=== PATIENT | female | born 1975 | race Caucasian/White ===

== ENCOUNTER → 2023-03-25 08:54 | Outpatient (BNVA) | payer SELFPAY | PROVIDERS: Referring Provider Dermatology; Visit Provider Dermatology | DX: Z01.89 Encounter for other specified special examinations (principal) ==

== ENCOUNTER → 2024-01-20 14:11 | Outpatient (BNVA) | payer MEDICAID, SELFPAY | PROVIDERS: PCP Nurse Practitioner; Visit Provider Nurse Practitioner | DX: I10 Essential (primary) hypertension (principal); F41.1 Generalized anxiety disorder | CPT/HCPCS: 80053; 80061; 84439; 84443; 84481 ==

== ENCOUNTER → 2025-01-25 12:01 | Outpatient (BNVA) | payer MEDICAID, SELFPAY | PROVIDERS: PCP Nurse Practitioner; Visit Provider Nurse Practitioner | DX: I10 Essential (primary) hypertension (principal) | CPT/HCPCS: 80053; 80061 ==

== ENCOUNTER → 2025-07-20 15:30 | Outpatient (BNVA) | payer MEDICAID, SELFPAY | PROVIDERS: PCP Nurse Practitioner; Visit Provider Nurse Practitioner | DX: I10 Essential (primary) hypertension (principal); W57.XXXA Bitten or stung by nonvenomous insect and other nonvenomous arthropods, initial encounter | CPT/HCPCS: 80053; 86618; 86666; 86757 ==

== ENCOUNTER 2025-08-16 09:53 | Outpatient (CLI) | payer MEDICAID, SELFPAY ==
--- NOTE | 2025-08-16 09:58 | MM_ITS ---
WS: [id number] BILATERAL 3D TOMOSYNTHESIS DIGITAL SCREENING MAMMOGRAPHY WITH CAD CLINICAL INFORMATION: Z12.31 - Encounter for screening mammogram for malignant ... HISTORY: Screening mammogram. No current complaints. COMPARISON: 2012 TECHNIQUE: Bilateral CC and MLO views. FINDINGS: Scattered fibroglandular densities bilaterally. No suspicious focal mass, asymmetry, calcifications, or architectural distortion. No evidence of malignancy. MM/MM scr tomosynthesis [id number] IMPRESSION: DENSITY: There are scattered areas of fibroglandular density. BI-RADS: 1 - Negative. FOLLOW UP: 1 Year Follow-up Recommend return to annual screening mammography.
== END 2025-08-16 09:54 | disposition home or self-care (01) ==
LOC: RAD 09:54
PROVIDERS: PCP Nurse Practitioner; Visit Provider Nurse Practitioner
DX: Z12.31 Encounter for screening mammogram for malignant neoplasm of breast (principal); R92.323 Mammographic fibroglandular density, bilateral breasts
CPT/HCPCS: 77063; 77067

== ENCOUNTER 2025-09-13 09:17 | Outpatient (CLI) | payer MEDICAID, SELFPAY ==
--- NOTE | 2025-09-13 10:00 | FL_ITS ---
WS: [id number] Exam: FL barium swallow modifd [id number] Date/Time of Exam: 09/13/2025 10:11 AM Reason For Exam: Fluoroscopy time: 2min [id number] minutes # of spot films: Modified barium swallow test was performed in conjunction with the speech therapy service. Oral pharyngeal phase of swallowing was normal. There was mild extrinsic compression along the posterior cervical esophagus secondary to bone spurring from C4-C7. This does not cause significant luminal narrowing. The patient tolerated all consistencies of barium mixture foodstuffs as well as liquids w ithout penetration or aspiration. The patient ingested a barium tablet without complication. FL/FL barium swallow modifd [id number] IMPRESSION: 1. No aspiration or penetration identified. 2. Mild posterior extrinsic compression of the cervical esophagus secondary to anterior bone spurs from C4-C7. This does not cause significant luminal narrowi ng. A separate report with detailed recommendations will follow from the speech the rapy service.
== END 2025-09-13 09:18 | disposition home or self-care (01) ==
LOC: RAD 09:18
PROVIDERS: PCP Nurse Practitioner; Visit Provider Surgery
DX: R13.10 Dysphagia, unspecified (principal); K22.2 Esophageal obstruction; M25.78 Osteophyte, vertebrae; M46.02 Spinal enthesopathy, cervical region
CPT/HCPCS: 74230; 92611

== ENCOUNTER 2025-10-11 06:25 | Day surgery (SDC) | payer MEDICAID, SELFPAY ==
[2025-10-11 06:39] VITALS: BP 138/107; PULSE 116; RESP 18; TEMP 36.2; O2SAT 98; BMI 46.2
[2025-10-11 07:00] LABS: OR HCG Qualitative Urine Negative (Negative)
--- NOTE | 2025-10-11 07:01 | W.PM.OPSFHP ---
Same Day Surgery H&P Indication for Procedure/HPI DATE OF PROCEDURE: October 11, 2025 CHIEF COMPLAINT/INDICATIONFOR SURGICAL PROCEDURE: need for screening colonoscopy and dysphagia PREOP DIAGNOSIS: need for screening colonoscopy and dysphagia PLANNED PROCEDURE: Operation Date: 10/11/25 07:40 Proposed Procedures p EGD Dilation W/ Balloon [id number] G0121 Z12.11 R13.10(Not Applicable) - Maldonado Valenzuela MD s Colonoscopy(Not Applicable) - Maldonado Valenzuela MD Medications/Allergies* Allergies/Adverse Reactions Allergy/AdvReac Type Severity Reaction Status Date / Time No Known Allergies Allergy Unverified 10/04/25 09:05 Current Medications: Generic Name Dose Route Start Last Admin Trade Name Freq PRN Reason Stop Dose Admin Sodium Chloride 1,000 mls @ 15 mls/hr 10/11/25 06:28 10/11/25 06:44 Sodium Chloride 0.9% IV 10/12/25 06:27 15 mls/hr .Q24H PRN Administration COLONOSCOPY FLUIDS Pertinent History/Comorbid Conditions* Medical History (Updated 08/24/25 @ 11:06 by Maldonado Valenzuela MD) Generalized anxiety disorder Obesity, Class III, BMI 40-49.9 (morbid obesity) Post-concussion headache Hx of traumatic brain injury 1990 Environmental and seasonal allergies Surgical History (Updated 04/04/23 @ 09:55 by LGADYS Howard) No pertinent past surgical history Family History (Updated 04/04/23 @ 09:56 by GLADYS Howard) Cancer Grandmother Hypertension Mother Denies family history of Diabetes CAD (coronary artery disease) Chronic kidney disease (CKD) Stroke Social History Smoking and tobacco/nicotine status: never used tobacco/nicotine Second hand smoke exposure: No Alcohol intake: former Substance/Drug Use: unknown Adopted: Yes Caregiver/support person: No Lives independently: Yes Household members: none Housing: House Marital status: / Number of children: 0 service: No Current occupational status: employed Current occupation: Self Pets and animals: No Do you think of yourself as: Straight/Heterosexual Current gender identity: Female Pertinent Exam Findings alert, oriented x 3, clear to auscultation bilaterally and regular rate & rhythm Recommendations Surgery/Procedure today Coding Level of Care Code Acute Code for Chg Fwd
--- NOTE | 2025-10-11 07:29 | ANES.PREANE2 ---
Pre-Anesthetic Assessment Height/Weight: Height 1.7 m Weight 133.81 kg Temp Pulse Resp BP Pulse Ox O2 Del Method 97.2 F L 116 H 18 138/107 98 Room Air 10/11/25 06:39 10/11/25 06:39 10/11/25 06:39 10/11/25 06:39 10/11/25 06:39 10/11/25 06:39 Preop Diagnosis: need for screening colonoscopy and dysphagia Operation Date: 10/11/25 07:40 Proposed Procedures p EGD Dilation W/ Balloon [id number] G0121 Z12.11 R13.10(Not Applicable) - Maldonado Valenzuela MD s Colonoscopy(Not Applicable) - Maldonado Valenzuela MD Familial anesthetic complications: none Last intake: Intake Last Liquid Date 10/10/25 Last Liquid Time 20:00 Last Solid Date 10/09/25 Last Solid Time 20:00 Last Intake: 23:00 Exam alert, oriented x 3 and regular rate & rhythm Airway Submandibular: within normal limits Cervical ROM: within normal limits Mallampati: Class II Dentition: full History/ROS No significant history except as noted Pulmonary None reported CV/HEM Hypertension None reported Hepatic None reported GI Gastroesophageal Reflux Disease Metabolic Morbid Ob[place] [facility] [place] None reported Neuropsych None reported Anesthetic Plan ASA status: 3 Anesthesia: Anesthesia Evaluation Risk of > 500 ml blood loss (7ml/kg in children): Yes, adequate IV access and fluids planned Medications/Allergies Home Medications ?Medication ?Instructions ?Recorded ?Confirmed ?Last Taken ?Type acarbose 100 mg tablet 100 mg PO TID #90 tabs 07/20/25 10/04/25 10/09/25 Rx bupropion HCl 300 mg 24 hr tablet, 300 mg PO QAM #30 tabs 07/20/25 10/04/25 10/09/25 Rx extended release (Wellbutrin XL) naltrexone 50 mg tablet 50 mg PO DAILY #30 tabs 07/20/25 10/04/25 10/09/25 Rx valsartan 80 mg tablet (Diovan) 80 mg PO DAILY #30 tabs 07/20/25 10/04/25 10/09/25 Rx semaglutide 0.25 mg or 0.5 mg (2 0.25 mg (0.368 mL) SUBCUT .week #3 09/19/25 10/04/2525 Rx mg/3 mL) subcutaneous pen injector mL (Ozempic) Allergies Allergy/AdvReac Type Severity Reaction Status Date / Time No Known Allergies Allergy Unverified 10/04/25 09:05 Current Medications Generic Name Dose Route Start Last Admin Trade Name Freq PRN Reason Stop Dose Admin Sodium Chloride 1,000 mls @ 15 mls/hr 10/11/25 06:28 10/11/25 06:44 Sodium Chloride 0.9% IV 10/12/25 06:27 15 mls/hr .Q24H PRN Administration COLONOSCOPY FLUIDS PFSH Anesthesia Medical History (Updated 08/24/25 @ 11:06 by Maldonado Valenzuela MD) Generalized anxiety disorder Obesity, Class III, BMI 40-49.9 (morbid obesity) Post-concussion headache Hx of traumatic brain injury 1990 Environmental and seasonal allergies Surgical History No pertinent past surgical history Family History Mother Hypertension Grandmother Cancer Denies family history of Diabetes CAD (coronary artery disease) Chronic kidney disease (CKD) Stroke Social History Smoking and tobacco/nicotine status: never used tobacco/nicotine Second hand smoke exposure: No Alcohol intake: former Substance/Drug Use: unknown Adopted: Yes Caregiver/support person: No Lives independently: Yes Household members: none Housing: House Marital status: / Number of children: 0 service: No Current occupational status: employed Current occupation: Self Pets and animals: No Do you think of yourself as: Straight/Heterosexual Current gender identity: Female
[2025-10-11 08:11] VITALS: BP 135/88; PULSE 84; RESP 16; TEMP 36.1; O2SAT 100
[2025-10-11 08:23] VITALS: BP 143/95; PULSE 81; RESP 18; O2SAT 100
[2025-10-11 08:35] VITALS: BP 135/97; PULSE 80; RESP 18; O2SAT 99
--- NOTE | 2025-10-11 08:45 | ANE.PACU2 ---
Inpatient post-anesthesia follow up: Airway intact: Yes Vital signs: Temperature 97 F Pulse Rate 80 Respiratory Rate 18 Blood Pressure 135/97 Pulse Oximetry 99 Oxygen Delivery Me thod Room Air Oxygen Flow Rate Fraction of Inspir ed Oxygen Hydration adequate: Yes Nausea and vomiting: No Pain level: 1 Mental status: Baseline
== END 2025-10-11 08:46 | disposition home or self-care (01) ==
PROVIDERS: Anesthesiology; PCP Nurse Practitioner; Visit Provider Surgery
PROC: 0DJD8ZZ Inspection of Lower Intestinal Tract, Via Natural or Artificial Opening Endoscopic (ICD-10-PCS; CPT 45378; 2025-10-11 07:40)
DX: Z12.11 Encounter for screening for malignant neoplasm of colon (principal); D12.8 Benign neoplasm of rectum; R13.10 Dysphagia, unspecified; K29.50 Unspecified chronic gastritis without bleeding; F41.9 Anxiety disorder, unspecified; E66.01 Morbid (severe) obesity due to excess calories; Z68.42 Body mass index [BMI] 45.0-49.9, adult; Z87.820 Personal history of traumatic brain injury; Z80.9 Family history of malignant neoplasm, unspecified; I10 Essential (primary) hypertension; K21.9 Gastro-esophageal reflux disease without esophagitis
CPT/HCPCS: 43239; 45385; 81025; 88305; J2704; J7030